=== PATIENT | male | born 1955 | race Two or more races ===

== ENCOUNTER 2024-11-01 09:01 | Outpatient (CLI) | payer MEDICAID ==
[2024-11-01 10:36] LABS: Hematocrit 45.3 % (41.0-53.0); Hemoglobin 15.5 g/dL (13.5-17.5); Mean Corpuscular Hemoglobin 31.1 pg (28.0-32.0); Mean Corpuscular Volume 90.7 fL (80.0-100.0); Nucleated Red Blood Cells % 0.2 %
[2024-11-01 10:59] LABS: Urine Protein, UAD Negative (Negative)
[2024-11-01 11:14] LABS: Alanine Aminotransferase 20 U/L (7-40); Albumin 4.2 g/dL (3.2-4.8); Alkaline Phosphatase 82 U/L (46-116); Anion Gap 9 (5-15); BUN/Creatinine Ratio 13.6 (10.0-20.0); Bilirubin, Total 1.0 mg/dL (0.2-1.0); Blood Urea Nitrogen 11 mg/dL (9-23); Calcium 9.3 mg/dL (8.7-10.4); Carbon Dioxide 27 mmol/L (20-31); Chloride 104 mmol/L (98-107); Potassium 4.7 mmol/L (3.5-5.1); Sodium 140 mmol/L (136-145); Total Protein 7.4 g/dL (5.7-8.2); Uric Acid 5.5 mg/dL (3.7-9.2)
[2024-11-01 11:15] LABS: Glucose 112 mg/dL (74-106)
[2024-11-01 12:07] LABS: Hepatitis C Antibody Negative (Negative)
[2024-11-01 13:02] LABS: HDL Cholesterol 49 mg/dL (40-59)
[2024-11-01 13:16] LABS: Cholesterol 178 mg/dL (< 200); Triglycerides 195 mg/dL (< 150)
[2024-11-02 22:06] LABS: Chlamydia Trachomatis, NAA Negative (Negative); Neisseria gonorrhoeae, NAA Negative (Negative)
== END 2024-11-01 17:00 | disposition home or self-care (01) ==
LOC: LAB 09:01
PROVIDERS: ATTEND Family Medicine
DX: E11.9 Type 2 diabetes mellitus without complications (principal); Z00.01 Encounter for general adult medical examination with abnormal findings; Z12.11 Encounter for screening for malignant neoplasm of colon; Z11.3 Encounter for screening for infections with a predominantly sexual mode of transmission; Z11.1 Encounter for screening for respiratory tuberculosis; Z13.89 Encounter for screening for other disorder
CPT/HCPCS: 36415; 80053; 80061; 81001; 82043; 83036; 84153; 84443; 84550; 85025; 86706; 86803; 87086

== ENCOUNTER 2024-11-06 06:20 | Outpatient (CLI) | payer MEDICAID | END 2024-11-06 17:00 | disposition home or self-care (01) | LOC: LAB 06:20 | PROVIDERS: ATTEND Family Medicine | DX: Z12.11 Encounter for screening for malignant neoplasm of colon (principal) | CPT/HCPCS: 82270 ==